=== PATIENT | male | born 1980 ===

== ENCOUNTER 2016-11-27 12:05 | Emergency (ER) | payer OTHER ==
[2016-11-27 12:05] VITALS: BMI 20.7
[2016-11-27 12:12] VITALS: BP 110/76; PULSE 98; RESP 18; TEMP 98.3; O2SAT 99
[2016-11-27] MEDS ORDERED: Tmp-Smz 800 mg-160 mg DS Tab PO STA (13:28)
--- NOTE | 2016-11-27 13:29 | C.PDOC ---
History Of Present Illness 36 year old male, with a history of Multiple Sclerosis, presents to the ED for evaluation of small pustule lesions to right forehead and right tibia for three days. Mother states she has been applying bacitracin and alcohol on the areas. Patient is also taking muscle spasm medications and suffers from occasional urinary incontinence. Patient's mother denies fever, nausea, or vomiting. Time Seen by Provider: 11/27/16 13:20 Chief Complaint (Nursing): Abnormal Skin Integrity History Per: Patient History/Exam Limitations: no limitations Onset/Duration Of Symptoms: Days (3 days of small pustule lesion on right forehead and right tibia ), Waxing/Waning (months of waxing and waning erythematus patches to bilateral groin ) Current Symptoms Are (Timing): Still Present Location Of Injury: Right: Face (forehead- small pusutle lesion ), Leg (right tibia- small pustule lesion ), Thigh (erythematus patches ), Left: Thigh Recent travel outside of the [place]: No Additional History Per: Family (mother ) Past Medical History Reviewed: Historical Data, Nursing Documentation, Vital Signs Vital Signs: Last Vital Signs Temp 98.3 F 11/27/16 12:11 Pulse 98 H 11/27/16 12:11 Resp 18 11/27/16 12:11 BP 110/76 11/27/16 12:11 Pulse Ox 99 11/27/16 16:03 - Medical History PMH: Multiple Sclerosis (2007) - [facility] Procedures INFUSION OF IMMUNOSUPPRESSIVE ANTIBODY THERAPY (09/30/14) INJECT CA CHEMOTHER NEC (12/23/14) INJECT/INFUSE NEC (09/02/14) PHYSICAL THERAPY NEC (08/27/14) Family History: States: Unknown Family Hx - Social History Hx Alcohol Use: No Hx Substance Use: No Review Of Systems Constitutional: Negative for: Fever, Chills Cardiovascular: Negative for: Chest Pain Respiratory: Negative for: Shortness of Breath Gastrointestinal: Negative for: Nausea, Vomiting, Abdominal Pain, Diarrhea Genitourinary: Positive for: Incontinence (occassional urinary incontience ) Musculoskeletal: Positive for: Other (+ Multiple Sclerosis ) Skin: Positive for: Other (erythematus patches to bilateral groin. Small pustule lesion on right forehead and right tibia. ) Neurological: Negative for: Weakness, Numbness Physical Exam - Physical Exam Appears: Non-toxic, No Acute Distress Skin: Warm, Dry, Other (Small furuncle on the right tibia, 0.5 cm wide with 10 cm x 10 cm area of surrounding erythema ) Head: Atraumatic, Other (Carbuncle on right forehead, 1cm x 1cm with fluctuance and pus. No surrounding erythema. ) Eye(s): bilateral: Normal Inspection Oral Mucosa: Moist Neck: Supple Chest: Symmetrical, No Deformity Cardiovascular: Rhythm Regular Respiratory: Normal Breath Sounds, No Rales, No Rhonchi, No Wheezing Extremity: Normal ROM, No Calf Tenderness, Capillary Refill (good capillary refill, less than two seconds ), No Deformity, No Swelling, Other (Two 10cm x 10 cm areas, consistent with tinea cruris, to the bilateral medial thighs with central clearnance leaving edges crusting. ) Neurological/Psych: Oriented x3, Normal Speech, Normal Cognition, Normal Motor, Normal Sensation ED Course And Treatment O2 Sat by Pulse Oximetry: 99 (room air ) Progress Note: Patient was given Bactrim. Medical Decision Making Medical Decision Making: pustule on R forehead, R anterior dykes, and L posterior upper calf area in various states of healing alcohol to forehead would may delay healing as it is tissue toxic, so soap and water educated. Disposition Doctor Will See Patient In The: Office Counseled Patient/Family Regarding: Studies Performed, Diagnosis - Disposition Referrals: [facility] [Outside] [facility] [Outside] Disposition: HOME/ ROUTINE Disposition Time: 13:29 Condition: GOOD Additional Instructions: abscess/cellulitis: Bactrim DS (antibiotic) 1 tab twice a day for 5 days Warm compresses Soap and water daily, no alcohol to the skin bacitracin ointment twice a day Tinea Cruris/Jock Itch Anti-fungal cream to the affected area twice a day for 5 days. there are NO steroids in this cream and will NOT affect MS treatment. Prescriptions: Clotrimazole 1% Cream [Lotrimin 1%] 1 % TP BID #1 tube Sulfamethoxazole/Trimethoprim [Bactrim DS 800 mg-160 mg] 1 tab PO BID #9 tab Instructions: Cellulitis (ED), Jock Itch (ED) Forms: [employer] (Latvian) - Clinical Impression Clinical Impression: Pustule, Cellulitis of leg - Scribe Statement The provider has reviewed the documentation as recorded by the Scribe Ora Cummings All medical record entries made by the [place] were at my direction and personally dictated by me. I have reviewed the chart and agree that the record accurately reflects my personal performance of the history, physical exam, medical decision making, and the department course for this patient. I have also personally directed, reviewed, and agree with the discharge instructions and disposition.
[2016-11-27] MEDS ORDERED: Tmp-Smz 800 mg-160 mg DS Tab ONE (13:32)
== END 2016-11-27 13:45 | disposition home or self-care (01) ==
LOC: C.ER 12:05
DX: L08.9 Local infection of the skin and subcutaneous tissue, unspecified (principal); L03.116 Cellulitis of left lower limb; L03.115 Cellulitis of right lower limb